=== PATIENT | male | born 1965 | race Caucasian/White ===

== ENCOUNTER 2016-07-01 19:44 | Emergency (ER) | payer BC | END 2016-07-01 20:00 | disposition left against medical advice (07) | LOC: UCCORT 19:44 | DX: T14.8 Other injury of unspecified body region (principal); W57.XXXA Bitten or stung by nonvenomous insect and other nonvenomous arthropods, initial encounter; Y93.9 Activity, unspecified; Y92.9 Unspecified place or not applicable; Y99.9 Unspecified external cause status; Z53.21 Procedure and treatment not carried out due to patient leaving prior to being seen by health care provider ==

== ENCOUNTER 2018-10-02 11:19 | Emergency (ER) | payer BC ==
--- NOTE | 2018-10-02 13:47 | ED ---
Lower Extremity - HPI Summary HPI Summary: 53-year-old male presents left knee pain today. He states he ended up hurting his left knee playing baseball. He has pain over medial aspect of his knee. No numbness or tingling. Does not feel weak. Has not been giving out. States feels likely meniscal injury that had on the other leg. No previous injuries to that area. No numbness tingling. - History of Current Complaint Chief Complaint: EDExtremityLower Stated Complaint: LEFT KNEE PAIN PER PATIENT Time Seen by Provider: 10/02/18 12:10 Pain Intensity: 2 - Allergies/Home Medications Allergies/Adverse Reactions: Allergies Allergy/AdvReac Type Severity Reaction Status Date / Time No Known Allergies Allergy Verified 10/02/18 11:25 PMH/Surg Hx/FS Hx/Imm Hx - Surgical History Surgery Procedure, Year, and Place: HERNIA REPAIR 2006. Tonsils Infectious Disease History: No Infectious Disease History: Denies: Traveled Outside the [place] in Last 30 Days - Family History Known Family History: Positive: Hypertension - Social History Alcohol Use: Occasionally Substance Use Type: Reports: None Smoking Status (MU): Never Smoked Tobacco Review of Systems Negative: Fever Negative: Chest Pain Negative: Shortness Of Breath Positive: Myalgia - left knee pain All Other Systems Reviewed And Are Negative: Yes Physical Exam Triage Information Reviewed: Yes Vital Signs On Initial Exam: Initial Vitals Temp Pulse Resp BP Pulse Ox 98 F 66 15 145/76 98 10/02/18 11:23 10/02/18 11:23 10/02/18 11:23 10/02/18 11:23 10/02/18 11:23 Vital Signs Reviewed: Yes Appearance: Positive: Well-Appearing Skin: Positive: Warm, Dry Head/Face: Positive: Normal Head/Face Inspection Eyes: Positive: Normal, Conjunctiva Clear ENT: Positive: Pharynx normal Respiratory/Lung Sounds: Positive: Clear to Auscultation, Breath Sounds Present Cardiovascular: Positive: Normal, RRR Musculoskeletal: Positive: Strength/ROM Intact - left knee with pain, Other - Tenderness over medial aspect of the left knee. No laxity noted strike. Negative Speedy's. Good pulses.. Negative: Edema Left Neurological: Positive: Normal Psychiatric: Positive: Normal Diagnostics - Vital Signs Vital Signs Temp Pulse Resp BP Pulse Ox 10/02/18 11:23 98 F 66 15 145/76 98 - Laboratory Lab Statement: Any lab studies that have been ordered have been reviewed, and results considered in the medical decision making process. - Radiology knee Radiology Interpretation Completed By: Radiologist Summary of Radiographic Findings: REPORT AND IMPRESSION: #. Small joint effusion. #. Negative for fracture or malalignment. Preserved joint spaces. # . Mild anterior soft tissue swelling. Lower Extremity Course/Dx - Course Course Of Treatment: 53-year-old male presents left knee pain today. He states he ended up hurting his left knee playing baseball. He has pain over medial aspect of his knee. No numbness or tingling. Does not feel weak. Has not been giving out. States feels likely meniscal injury that had on the other leg. No previous injuries to that area. No numbness tingling. On exam has tenderness over medial aspect of left knee. X-ray shows no fracture. Told to follow-up with orthopedic. Patient is comfortable walking as has own crutches. Patient understands and agrees the plan. - Diagnoses Differential Diagnosis/HQI/PQRI: Positive: Fracture (Closed), Sprain, Strain Provider Diagnoses: Left knee pain Discharge - Sign-Out/Discharge Documenting (check all that apply): Patient Departure Patient Received Moderate/Deep Sedation with Procedure: No - Discharge Plan Condition: Good Disposition: HOME Patient Education Materials: Knee Pain (ED) Referrals: Nimco Tomlinson MD [Primary Care Provider] - Davi Goldberg MD [Medical Doctor] - Additional Instructions: use crutches as needed Take ibuprofen or Tylenol every [address] ice on area Elevate follow up with ortho Return to ED if develop any new or worsening symptoms - Billing Disposition and Condition Condition: GOOD Disposition: Home
[2018-10-02 13:53] VITALS: BP 135/74
== END 2018-10-02 13:52 | disposition home or self-care (01) ==
LOC: ED 11:19
DX: M25.562 Pain in left knee (principal); X58.XXXA Exposure to other specified factors, initial encounter; Y93.67 Activity, basketball; Y92.9 Unspecified place or not applicable
CPT/HCPCS: 99282